=== PATIENT | male | born 1940 | race Caucasian/White ===

== ENCOUNTER 2019-12-10 12:11 | Emergency (ER) | payer OTHER ==
[~2019-12-10] VITALS: Ht 170.2 cm; Wt 118.8 kg
--- NOTE | 2019-12-10 12:30 | NUR ---
Patient to ER bed 05 to gown for evaluation. Side rails up.
--- NOTE | 2019-12-10 12:32 | NUR ---
Pt brought by family , A&Ox4, pt presents to ER post mechanical fall, skin pink and warm , VSS, respirations even and unlabored, cap refill <3, follows commands, ambulates with steady gait, no N/V noted.
--- NOTE | 2019-12-10 12:33 | NUR ---
Patient ambulated to the bathroom with a steady gait. Urine specimen collected.
[2019-12-10 12:47] VITALS: BP_SYST 149
--- NOTE | 2019-12-10 12:58 | NUR ---
ER Dr. Gilbert at bedside examining patient.
--- NOTE | 2019-12-10 13:10 | NUR ---
Patient is taken to CT in stable condition.
--- NOTE | 2019-12-10 13:24 | NUR ---
ER Dr. Gilbert at bedside re-examining patient.
--- NOTE | 2019-12-10 13:24 | NUR ---
Patient is back from CT in stable condition.
--- NOTE | 2019-12-10 14:40 | NUR ---
Patient given written and verbal discharge instructions and verbalizes understanding. ER MD discussed with patient the results and treatment provided. Patient in stable condition. ID arm band removed. Rx of given. Patient educated on pain management and to follow up with PMD. Pain Scale 0/10. Opportunity for questions provided and answered. Medication side effect fact sheet provided.
[2019-12-10 14:45] VITALS: BP_SYST 149
== END 2019-12-10 14:45 | disposition home or self-care (01) ==
LOC: SED 12:11
DX: S06.2X9A Diffuse traumatic brain injury with loss of consciousness of unspecified duration, initial encounter (principal); I10 Essential (primary) hypertension; Z86.79 Personal history of other diseases of the circulatory system; W18.09XA Striking against other object with subsequent fall, initial encounter; Y93.89 Activity, other specified; Y92.89 Other specified places as the place of occurrence of the external cause; Y99.8 Other external cause status
CPT/HCPCS: 70450-TC; 99284